=== PATIENT | female | born 1945 | race Caucasian/White ===

== ENCOUNTER 2020-06-19 10:13 | Day surgery (SDC) | payer MEDICARE, BC ==
[2020-06-11 12:13] LABS: BASOPHILS % (AUTO) 0.6 % (0-1); EOSINOPHILS % (AUTO) 0.9 % (0-6); LYMPHOCYTES # (AUTO) 1.3 X10'3 (1.1-4.8); LYMPHOCYTES % (AUTO) 25.7 % (21-51); MEAN CORPUSCULAR HEMOGLOBIN 32.7 PG (27.0-31.0); MEAN CORPUSCULAR HGB CONC 33.4 g/dL (33.0-36.5); MEAN CORPUSCULAR VOLUME 97.7 FL (78-98); MEAN PLATELET VOLUME 8.6 FL (7.4-10.4); MONOCYTES # (AUTO) 0.5 X10'3 (0-0.9); MONOCYTES % (AUTO) 9.9 % (2-12); NEUTROPHILS # (AUTO) 3.2 X10'3 (1.8-7.7); NEUTROPHILS % (AUTO) 62.9 % (42-75); PRE OP HEMATOCRIT 43.1 % (35.0-45.0); PRE OP HEMOGLOBIN 14.4 g/dL (12.0-16.0); PRE OP PLATELET COUNT 166 X10'3 (140-440); RED BLOOD COUNT 4.41 X10'6 (4.20-5.60); RED CELL DISTRIBUTION WIDTH 13.8 % (11.5-14.5)
[2020-06-11 12:30] LABS: ALBUMIN 4.2 G/DL (3.4-5.0); ALBUMIN/GLOBULIN RATIO 1.1 (1.1-1.5); ALKALINE PHOSPHATASE 58 IU/L (46-116); BLOOD UREA NITROGEN 16 MG/DL (7-18); BUN/CREATININE RATIO 20.5 (6.6-38.0); CALCIUM 8.3 MG/DL (8.5-10.1); CHLORIDE 104 MMOL/L (99-107); CREATININE 0.78 MG/DL (0.40-0.90); PRE OP ALT 18 U/L (30-65); PRE OP ANION GAP 6 (8-16); PRE OP AST 11 U/L (10-37); PRE OP BILIRUB, TOTAL 0.8 MG/DL (0.0-1.0); PRE OP GLUCOSE 103 MG/DL (70-104); PRE OP POTASSIUM 4.3 MMOL/L (3.4-5.1); PRE OP SODIUM 140 MMOL/L (135-145); TOTAL PROTEIN 7.9 G/DL (6.4-8.2); eGFR 72 ML/MIN
[2020-06-19] VITALS (9 sets, daily range): BP systolic 120–205; BP diastolic 79–110
[~2020-06-19] VITALS: Ht 152.4 cm; Wt 91.9 kg
[~2020-06-19 10:13] MED LIST: ACET-2319 PO; ASPI81TA52 PO; BLAC200C4 PO; CYAN1TAB17 PO; ESTR0.5T28 PO; UMEC1DIS INH; ceFAZolin 2gm in dextrose, iso 50 ML IV ONE; famotidine 20mg tablet PO ONE; ringers solution, lacted 1,000 ML IV SCH; vancomycin 1,500 MG in NS 300ml IV soln IV ONE
[2020-06-19] MEDS ORDERED: metoprolol tartrate 50mg tablet PO ONE (11:15)
[2020-06-19] MEDS ORDERED: BUPIVAcaine/PF 2.5 mg/ml (0.25%) 30ml vial ONE (11:41)
[2020-06-19] MEDS ORDERED: sevoflurane 250ml liquid IH ONE (12:22)
[2020-06-19] MEDS ORDERED: fentaNYL/PF 50MCG/1 ML 2ML syringe ONE (12:29)
[2020-06-19] MEDS ORDERED: midazolam 2 mg/2 ml injection ONE (12:30)
[2020-06-19] MEDS ORDERED: LIDOcaine 1%/PF 5ML 10 MG/ML VIAL ONE ×2 (12:42)
[2020-06-19] MEDS ORDERED: BUPIVAcaine/PF 7.5mg/ml (0.75%) 10ml vial ONE (12:42)
[2020-06-19] MEDS ORDERED: dexamethasone sod phosphate 4mg/ml inj. ONE (12:46)
[2020-06-19] MEDS ORDERED: propofol inj 20 ML IV ONE (12:46)
[2020-06-19] MEDS ORDERED: ondansetron/PF 4mg/2ml inj ONE (12:46)
[2020-06-19] MEDS ORDERED: ringers solution, lacted 1,000 ML IV SCH (13:00)
[2020-06-19] MEDS ORDERED: ondansetron/PF 4mg/2ml inj IV PRN (13:00)
[2020-06-19] MEDS ORDERED: morphine 2 MG/ML inj. syringe IV PRN (13:00)
[2020-06-19] MEDS ORDERED: meperidine/PF 25mg/ml syringe IV PRN ×3 (13:00)
[2020-06-19] MEDS ORDERED: morphine 4 MG/ML inj SYRINge IV PRN (13:00)
[2020-06-19] MEDS ORDERED: proCHLORperazine 10 MG/2 ml inj IV PRN (13:00)
--- NOTE | 2020-06-19 14:15 | NUR ---
Received from OR via BED, accompanied by Anesthesiologist DR RICHARD and report given by Anesthesiolgist. PATIENT A&OX4, DENIES PAIN, V/S WNL, NEUROVASCULAR CHECKS INTACT, 20G PIV LUE, SCD ON, DRESSING TO RIGHT FOOT WITH WALKING SHOE CDI ELEVATED WITH ICEBAG APPLIED.
--- NOTE | 2020-06-19 15:15 | NUR ---
PATIENT A&OX4, DENIES PAIN, V/S WNL, NEUROVASCULAR CHECKS INTACT, 20G PIV LUE D/C, SCD OFF, DRESSING TO RIGHT FOOT WITH WALKING SHOE CDI ELEVATED WITH ICEBAG APPLIED. I HAVE REVIEWED D/C INSTRUCTIONS WITH PATIENT AND FAMILY AND THEY HAVE VERBALIZED UNDERSTANDING. PATIENT D/C HOME WITH ALL BELONGINGS AND FAMILY GAVE TRANSPORT HOME.
== END 2020-06-19 15:15 | disposition home or self-care (01) ==
LOC: PAS 10:13
PROVIDERS: ATTEND Orthopaedic Surgery
DX: M20.42 Other hammer toe(s) (acquired), left foot (principal); I08.3 Combined rheumatic disorders of mitral, aortic and tricuspid valves; G89.18 Other acute postprocedural pain; J44.9 Chronic obstructive pulmonary disease, unspecified; M19.90 Unspecified osteoarthritis, unspecified site; Z90.710 Acquired absence of both cervix and uterus; Z87.891 Personal history of nicotine dependence; Z88.8 Allergy status to other drugs, medicaments and biological substances; Z79.899 Other long term (current) drug therapy
CPT/HCPCS: 28270; 28285; 36415; 64450; 71046; 80053; 82948; 85025; 87635; 93005; 93306; A6222; C1713; J1100; J2250; J2405; J2704; J3010; J3370; J3490; J7040; L3260; A4215; A4618; A6449; A7000; J7120

== ENCOUNTER 2022-06-26 17:55 | Inpatient (IN) | payer MEDICARE, BC ==
[~2022-06-26] VITALS: Ht 167.6 cm; Wt 86.9 kg
[~2022-06-26 17:55] MED LIST changes: -ceFAZolin 2gm in dextrose, iso 50 ML IV ONE; -famotidine 20mg tablet PO ONE; -ringers solution, lacted 1,000 ML IV SCH; -vancomycin 1,500 MG in NS 300ml IV soln IV ONE
[2022-06-26 18:14] LABS: BASOPHILS % (AUTO) 0.6 % (0-1); EOSINOPHILS # (AUTO) 0.1 X10'3 (0-0.9); HEMATOCRIT 40.6 % (35.0-45.0); HEMOGLOBIN 13.4 g/dl (12.0-16.0); LYMPHOCYTES % (AUTO) 18.5 % (21-51); MEAN CORPUSCULAR HEMOGLOBIN 32.6 PG (27.0-31.0); MEAN CORPUSCULAR HGB CONC 32.9 g/dL (33.0-36.5); MEAN CORPUSCULAR VOLUME 99.1 FL (78-98); MEAN PLATELET VOLUME 8.2 FL (7.4-10.4); MONOCYTES # (AUTO) 0.4 X10'3 (0-0.9); MONOCYTES % (AUTO) 7.9 % (2-12); PLATELET COUNT 163 X10'3 (140-440); RED BLOOD COUNT 4.09 X10'6 (4.20-5.60); RED CELL DISTRIBUTION WIDTH 15.3 % (11.5-14.5); WHITE BLOOD COUNT 5.5 X10'3 (4.5-11.0)
[2022-06-26 18:29] LABS: ALANINE AMINOTRANSFERASE 39 U/L (12-78); ALBUMIN 3.3 G/DL (3.4-5.0); ALKALINE PHOSPHATASE 291 IU/L (46-116); ANION GAP 11 (8-16); ASPARTATE AMINO TRANSFERASE 31 U/L (10-37); BILIRUBIN,TOTAL 0.7 MG/DL (0.1-1.0); BLOOD UREA NITROGEN 67 MG/DL (7-18); BUN/CREATININE RATIO 39.6 (6.6-38.0); CALCIUM 8.8 MG/DL (8.5-10.1); CHLORIDE 103 MMOL/L (99-107); CREATININE 1.69 MG/DL (0.40-0.90); GLUCOSE 119 MG/DL (70-104); POTASSIUM 5.4 MMOL/L (3.5-5.1); SODIUM 140 MMOL/L (135-145); TOTAL CARBON DIOXIDE 25.6 MMOL/L (24-32); TOTAL PROTEIN 6.5 G/DL (6.4-8.2); eGFR 30 ML/MIN
--- NOTE | 2022-06-26 18:39 | NUR ---
Provider notified of AFIB rvr rate 145 and documented BP now. Provider advised cardizem at 10mg/hr starting rate.
[2022-06-26] MEDS ORDERED: diltiazem-D5W 125mg/125ml 125 ML IV SCH (18:40)
[2022-06-26] MEDS: diltiazem-NS 100mg/100ml 100 ML IV SCH ×2 (18:54→21:24)
--- NOTE | 2022-06-26 20:19 | NUR ---
Provider notified of uncontrolled HR, remains in 130-140s. Patient systolic BP low 100s, provider aware. Advised RN amiodarone protocol will be ordered. Continue cardizem until amiodarone is started. Patient also continues with difficulty obtaining pulse ox, left ear producing most useful continuous reading, spo2 93 percent on 4L via NC.
[2022-06-26] MEDS ORDERED: amiodarone/D5 360MG/200ML BAG 200 ML IV ONE (20:30)
[2022-06-26] MEDS ORDERED: normal saline 1000ML IV soln IVB ONE (20:35)
[2022-06-26] MEDS ORDERED: digoxin 250mcg/ml 2ml ampule IV ONE (20:35)
[2022-06-26] MEDS ORDERED: diltiazem 5mg/ml 5ml inj. IV ONE (20:35)
--- NOTE | 2022-06-26 20:55 | NUR ---
Provider advised RN to NOT GIVE ordered IV Cardizem.
[2022-06-26] MEDS ORDERED: temazepam 15mg capsule PO PRN (21:00)
--- NOTE | 2022-06-26 22:13 | NUR ---
At request of Dr. Trotter, Dr. Frank Stack called to discuss ongoing uncontrolled AFIB RVR rate 130/140s, BP 92/65. Frank Stack recommends admin 5mg IVP metoprolol. Telephone order received.
[2022-06-26] MEDS ORDERED: metoprolol tartrate 1mg/ml inj IV ONE (22:15)
[2022-06-26] MEDS ORDERED: normal saline 500ml IV soln 1,000 ML IV ONE (22:30)
[2022-06-26] MEDS ORDERED: ipratropium/albuterol 3ml nebule NEB PRN (23:30)
[2022-06-26] MEDS ORDERED: mag hydrox/Alum hydrox/simeth 30ml oral suspension PO PRN (23:30)
[2022-06-26] MEDS ORDERED: HYDROcodone/acetaminophen 5mg/325mg tablet PO PRN (23:30)
[2022-06-26] MEDS ORDERED: ondansetron 4mg rapidly disintigrating tab PO PRN (23:30)
[2022-06-26] MEDS ORDERED: morphine 2 MG/ML inj. syringe IV PRN (23:30)
[2022-06-26] MEDS ORDERED: acetaminophen 650mg rectal suppository RC PRN (23:30)
[2022-06-26] MEDS ORDERED: acetaminophen 325mg tablet PO PRN ×2 (23:30)
[2022-06-26] MEDS ORDERED: diphenhydrAMINE 50 mg/ml inj IV PRN (23:30)
[2022-06-26] MEDS ORDERED: magnesium hydroxide 30ml (MOM) UD suspension PO PRN (23:30)
[2022-06-26] MEDS ORDERED: bisacodyl 10mg suppository rectal RC PRN (23:30)
[2022-06-26] MEDS ORDERED: diphenhydrAMINE 25mg capsule PO PRN (23:30)
[2022-06-26] MEDS: normal saline 1000ml 1,000 ML IV SCH (23:30)
[2022-06-26] MEDS ORDERED: ondansetron/PF 4mg/2ml inj IV PRN (23:30)
[2022-06-27] VITALS (39 sets, daily range): BP systolic 48–129; BP diastolic 30–103
[2022-06-27] MEDS ORDERED: insulin regular, human 10 units/0.1 ml syringe IV ONE (00:10)
[2022-06-27] MEDS ORDERED: sodium polystyrene sulfonate 15gm/60ml oral suspension PO ONE (00:10)
[2022-06-27] MEDS ORDERED: CALCIUM GLUC 1gm/50ml NACL,iso 50 ML IV PRN (00:10)
[2022-06-27] MEDS ORDERED: dextrose 50%-water 50ml dispensing syringe IV ONE (00:10)
[2022-06-27] MEDS: furosemide inj 100 MG in normal saline 100ml IV soln 90 ML IV SCH ×4 (00:15→21:00)
[2022-06-27] MEDS ORDERED: sodium bicarbonate (8.4%) inj. 1 MEQ/ML ML IV ONE (00:15)
[2022-06-27 00:24] LABS: APTT 29 SECONDS (22-32); D-DIMER 1.91 MG/L FEU (0-0.50)
--- NOTE | 2022-06-27 00:30 | NUR ---
Patient apprehensive to start HyperK medications. States she was seen by cardiology they were not concerned about. Dr. Smith notified, will recheck AM potassium level, will hold these medications for now.
[2022-06-27 00:33] LABS: MAGNESIUM 2.2 MG/DL (1.5-2.4); PHOSPHORUS 5.1 MG/DL (2.3-4.5)
[2022-06-27 00:36] LABS: CLARITY,URINE CLEAR (Clear); COLOR,URINE YELLOW (Yellow); GLUCOSE, URINE NEGATIVE (Neg); KETONES,URINE NEGATIVE (Neg); LEUKOCYTE ESTERASE ,URINE NEGATIVE (Neg); NITRITES, URINE NEGATIVE (Neg); OCCULT BLOOD,URINE MODERATE (Neg); PROTEIN,URINE NEGATIVE (Neg); UROBILINOGEN,URINE 0.2 E.U/dL (0.2-1.0)
[2022-06-27 00:38] LABS: UA COLLECTION TYPE STRAIGHT CATH
[2022-06-27 00:43] LABS: BACTERIA,URINE NONE SEEN /HPF (Neg); HYALINE CASTS 0-3 /LPF (NEGATIVE); MUCUS STRANDS FEW /LPF (Neg); SQUAMOUS EPITHELIAL CELL,UR NONE SEEN /LPF (FEW); WBC,URINE 0-4 /HPF (0-4)
[2022-06-27 01:00] LABS: HEMOGLOBIN A1C 6.1 % (4.5-6.2)
[2022-06-27] MEDS ORDERED: amiodarone/D5 360MG/200ML BAG 200 ML IV SCH (02:35)
--- NOTE | 2022-06-27 02:35 | NUR ---
Patient noted end of amiodarone drip 33mls/hr phase, provider called for ongoing elevated/variable AFIB RVR, rate remains 120-140s, BP 98/65. Discussed conversation previous had at bedside with Cardiology Seda, will enter telephone order for 16.5mls/hr at this time and continue amiodarone drip.
--- NOTE | 2022-06-27 02:52 | NUR ---
Report called to Jett on PCU, pending clearance to transport to receiving unit.
--- NOTE | 2022-06-27 03:06 | NUR ---
Dr. Stack cardiology called at this time at request of PCU. Discussed patient current borderline pressures and ongoing elevated HR in 120s-140s. Dr. Stack advised patient should continue amiodarone at the previous 33mls/hr not the new 16.5. Also advised caller to administer PO 25mg metoprolol tartrate. Low BP are expected finding given patient known history low EF. No other changes per Dr. Stack, is agreeable for patient to go to PCU.
[2022-06-27] MEDS ORDERED: metoprolol tartrate 25mg tablet PO ONE (03:15)
[2022-06-27] MEDS: amiodarone/D5 360MG/200ML BAG 200 ML IV SCH ×5 (03:32→16:37)
[2022-06-27 06:57] LABS: BASOPHILS % (AUTO) 0.3 % (0-1); HEMATOCRIT 38.9 % (35.0-45.0); HEMOGLOBIN 12.6 g/dl (12.0-16.0); LYMPHOCYTES # (AUTO) 0.8 X10'3 (1.1-4.8); LYMPHOCYTES % (AUTO) 16.2 % (21-51); MEAN CORPUSCULAR HEMOGLOBIN 32.1 PG (27.0-31.0); MEAN CORPUSCULAR HGB CONC 32.5 g/dL (33.0-36.5); MEAN PLATELET VOLUME 8.9 FL (7.4-10.4); MONOCYTES # (AUTO) 0.4 X10'3 (0-0.9); NEUTROPHILS # (AUTO) 3.5 X10'3 (1.8-7.7); NEUTROPHILS % (AUTO) 73.5 % (42-75); PLATELET COUNT 147 X10'3 (140-440); RED BLOOD COUNT 3.93 X10'6 (4.20-5.60); RED CELL DISTRIBUTION WIDTH 15.3 % (11.5-14.5); WHITE BLOOD COUNT 4.7 X10'3 (4.5-11.0)
[2022-06-27 06:59] LABS: ALANINE AMINOTRANSFERASE 33 U/L (12-78); ALBUMIN 3.2 G/DL (3.4-5.0); ALKALINE PHOSPHATASE 260 IU/L (46-116); ANION GAP 10 (8-16); ASPARTATE AMINO TRANSFERASE 25 U/L (10-37); BILIRUBIN,TOTAL 0.6 MG/DL (0.1-1.0); BLOOD UREA NITROGEN 64 MG/DL (7-18); BUN/CREATININE RATIO 37.9 (6.6-38.0); CALCIUM 8.8 MG/DL (8.5-10.1); CHLORIDE 103 MMOL/L (99-107); CHOL/HDL RATIO 2.8 (0.00-4.99); CHOLESTEROL 111 MG/DL (0-200); CREATININE 1.69 MG/DL (0.40-0.90); GLUCOSE 109 MG/DL (70-104); HDL CHOLESTEROL 40 MG/DL (35-60); LDL CHOLESTEROL 57 MG/DL (50-100); POTASSIUM 5.1 MMOL/L (3.5-5.1); SODIUM 141 MMOL/L (135-145); TOTAL PROTEIN 6.4 G/DL (6.4-8.2); TRIGLYCERIDES 87 MG/DL (20-135); eGFR 30 ML/MIN
--- NOTE | 2022-06-27 07:29 | NUR ---
Patient in room PCU 3027. I have received report from KARIN DE, and had the opportunity to ask questions and assume patient care.
[2022-06-27] MEDS: docusate sod 100mg capsule PO SCH ×2 (08:15→21:25)
--- NOTE | 2022-06-27 10:23 | NUR ---
Calorie count consult: Pt admit for A.fib with RVR, acute renal failure with hyperkalemia, acute respiratory failure secondary to hypoxia, and CHF exacerbation. Pt currently on a clear liquid diet. Calorie count not indicated at this time. Recommend advancing to regular versus renal diet as medically indicated as lipid panel is WNL and pt with elevated serum Phos, K now WNL. Will continue to follow. Addendum: 06/27/22 at [address] Amended: Links added.
--- NOTE | 2022-06-27 13:32 | NUR ---
RECEIVED IN REPORT THAT IT PT'S K IS WNL IN THE MORNING TO DISCONTINUE ER MEDS.
--- NOTE | 2022-06-27 16:40 | NUR ---
PAGE SENT [id number], EMELY JONES, PT C/O EARNEST LINARES. HOW CAN I HELP HER? THANK YOU, AMBREEN [phone]
--- NOTE | 2022-06-27 19:01 | NUR ---
Problems reprioritized. Patient report given, questions answered & plan of care reviewed with KARIN KOWALSKI.
[2022-06-28] VITALS (13 sets, daily range): BP systolic 84–109; BP diastolic 48–86
[2022-06-28] MEDS: amiodarone/D5 360MG/200ML BAG 200 ML IV SCH ×2 (03:23→09:06)
[2022-06-28] MEDS: furosemide inj 100 MG in normal saline 100ml IV soln 90 ML IV SCH ×3 (05:05→15:48)
[2022-06-28 05:42] LABS: EOSINOPHILS # (AUTO) 0.1 X10'3 (0-0.9); HEMOGLOBIN 12.6 g/dl (12.0-16.0); MEAN CORPUSCULAR HEMOGLOBIN 31.8 PG (27.0-31.0); MEAN CORPUSCULAR HGB CONC 32.6 g/dL (33.0-36.5); MONOCYTES # (AUTO) 0.3 X10'3 (0-0.9); NEUTROPHILS # (AUTO) 2.9 X10'3 (1.8-7.7); RED BLOOD COUNT 3.96 X10'6 (4.20-5.60); RED CELL DISTRIBUTION WIDTH 14.9 % (11.5-14.5)
[2022-06-28 05:46] LABS: BASOPHILS % (AUTO) 0.5 % (0-1); EOSINOPHILS % (AUTO) 1.4 % (0-6); HEMATOCRIT 38.6 % (35.0-45.0); LYMPHOCYTES # (AUTO) 0.6 X10'3 (1.1-4.8); LYMPHOCYTES % (AUTO) 14.7 % (21-51); MEAN CORPUSCULAR VOLUME 97.7 FL (78-98); MEAN PLATELET VOLUME 8.2 FL (7.4-10.4); MONOCYTES % (AUTO) 9.1 % (2-12); NEUTROPHILS % (AUTO) 74.3 % (42-75); PLATELET COUNT 149 X10'3 (140-440); WHITE BLOOD COUNT 3.8 X10'3 (4.5-11.0)
[2022-06-28 06:11] LABS: ALANINE AMINOTRANSFERASE 30 U/L (12-78); ALBUMIN 3.2 G/DL (3.4-5.0); ALKALINE PHOSPHATASE 227 IU/L (46-116); ANION GAP 8 (8-16); ASPARTATE AMINO TRANSFERASE 26 U/L (10-37); BILIRUBIN,TOTAL 0.6 MG/DL (0.1-1.0); BLOOD UREA NITROGEN 55 MG/DL (7-18); BUN/CREATININE RATIO 33.5 (6.6-38.0); CALCIUM 8.6 MG/DL (8.5-10.1); CHLORIDE 101 MMOL/L (99-107); CREATININE 1.64 MG/DL (0.40-0.90); GLUCOSE 117 MG/DL (70-104); POTASSIUM 3.8 MMOL/L (3.5-5.1); SODIUM 139 MMOL/L (135-145); TOTAL CARBON DIOXIDE 30.1 MMOL/L (24-32); TOTAL PROTEIN 6.4 G/DL (6.4-8.2); eGFR 31 ML/MIN
--- NOTE | 2022-06-28 07:13 | NUR ---
Patient in room PCU 3027. I have received report from KARIN KOWALSKI, and had the opportunity to ask questions and assume patient care.
[2022-06-28] MEDS: docusate sod 100mg capsule PO SCH ×2 (09:05→21:59)
[2022-06-28] MEDS: amiodarone inj. 450 MG in dextrose 5%-water 241 ML IV SCH ×3 (15:48→23:45)
--- NOTE | 2022-06-28 18:17 | NUR ---
Problems reprioritized. Patient report given, questions answered & plan of care reviewed with KARIN KOWALSKI.
[2022-06-28] MEDS: normal saline 1000ml 1,000 ML IV SCH (23:30)
[2022-06-29] VITALS (11 sets, daily range): BP systolic 91–112; BP diastolic 42–87
[2022-06-29] MEDS: furosemide inj 100 MG in normal saline 100ml IV soln 90 ML IV SCH ×3 (01:36→22:16)
[2022-06-29 06:17] LABS: HEMOGLOBIN 13.6 g/dl (12.0-16.0); MEAN CORPUSCULAR HEMOGLOBIN 32.3 PG (27.0-31.0); MEAN PLATELET VOLUME 8.2 FL (7.4-10.4); PLATELET COUNT 155 X10'3 (140-440); RED BLOOD COUNT 4.22 X10'6 (4.20-5.60); WHITE BLOOD COUNT 4.3 X10'3 (4.5-11.0)
[2022-06-29 06:18] LABS: BASOPHILS % (AUTO) 0.6 % (0-1); EOSINOPHILS # (AUTO) 0.1 X10'3 (0-0.9); EOSINOPHILS % (AUTO) 1.2 % (0-6); HEMATOCRIT 40.9 % (35.0-45.0); LYMPHOCYTES # (AUTO) 0.6 X10'3 (1.1-4.8); LYMPHOCYTES % (AUTO) 14.8 % (21-51); MEAN CORPUSCULAR HGB CONC 33.3 g/dL (33.0-36.5); MONOCYTES # (AUTO) 0.4 X10'3 (0-0.9); NEUTROPHILS # (AUTO) 3.2 X10'3 (1.8-7.7); NEUTROPHILS % (AUTO) 74.4 % (42-75); RED CELL DISTRIBUTION WIDTH 14.8 % (11.5-14.5)
[2022-06-29 06:57] LABS: ALANINE AMINOTRANSFERASE 29 U/L (12-78); ALBUMIN 3.3 G/DL (3.4-5.0); ALBUMIN/GLOBULIN RATIO 0.9 (1.1-1.5); ALKALINE PHOSPHATASE 214 IU/L (46-116); ANION GAP 11 (8-16); ASPARTATE AMINO TRANSFERASE 30 U/L (10-37); BILIRUBIN,TOTAL 0.8 MG/DL (0.1-1.0); BLOOD UREA NITROGEN 44 MG/DL (7-18); BUN/CREATININE RATIO 30.1 (6.6-38.0); CHLORIDE 97 MMOL/L (99-107); CREATININE 1.46 MG/DL (0.40-0.90); GLUCOSE 118 MG/DL (70-104); POTASSIUM 3.2 MMOL/L (3.5-5.1); SODIUM 139 MMOL/L (135-145); TOTAL CARBON DIOXIDE 30.6 MMOL/L (24-32); TOTAL PROTEIN 6.9 G/DL (6.4-8.2); eGFR 35 ML/MIN
--- NOTE | 2022-06-29 08:16 | NUR ---
Paged PAGER ID: [phone] MESSAGE: [phone]. Elvin. Justine 3.2, need k/mg protocol pls? Thanks, Olesya [phone]
[2022-06-29] MEDS: amiodarone inj. 450 MG in dextrose 5%-water 241 ML IV SCH ×3 (08:22→21:03)
[2022-06-29] MEDS: docusate sod 100mg capsule PO SCH ×2 (08:22→19:55)
[2022-06-29] MEDS ORDERED: FURO20TA4 PO (08:35)
[2022-06-29] MEDS ORDERED: POTA8TAB69 PO (08:35)
[2022-06-29] MEDS ORDERED: APIX5TAB3 PO (08:35)
[2022-06-29] MEDS ORDERED: LISI20TA28 PO (08:35)
[2022-06-29] MEDS ORDERED: BETA15CR4 (08:35)
[2022-06-29] MEDS ORDERED: magnesium Cl slow-release 64mg tablet PO PRN (08:40)
[2022-06-29] MEDS ORDERED: potassium Cl 40MEQ/1/2NS 520ml 520 ML IV PRN (08:40)
[2022-06-29] MEDS ORDERED: magnesium 4gm in 100ml NS 100 ML IV PRN (08:40)
[2022-06-29] MEDS: potassium Cl 20 mEq SR tablet PO PRN ×3 (09:40→19:56)
[2022-06-29] MEDS: cephalexin 250mg capsule PO SCH ×3 (09:40→19:55)
--- NOTE | 2022-06-29 11:00 | NUR ---
Pts brought in home meds. Gave pt her estradiol which she was swallowing as I entered the room. Educated on home meds. She verbalized understanding and will have take them back home.
[2022-06-29] MEDS ORDERED: METO-384 PO (11:24)
[2022-06-29] MEDS ORDERED: METO5TAB7 PO (11:24)
--- NOTE | 2022-06-29 12:11 | NUR ---
Paged PAGER ID: [phone] MESSAGE: [phone]. Elvin. Pls rev med rec AND see Dr benavidez progress note on metoprolol dose. HR 135-145's. Pls advise. Thanks, Olesya [phone]
[2022-06-29] MEDS ORDERED: CLOB15OI3 TOP (14:59)
[2022-06-29] MEDS: metoprolol tartrate 25mg tablet PO SCH ×2 (16:28→19:57)
--- NOTE | 2022-06-29 18:47 | NUR ---
Student documentation: I have reviewed and agree with all interventions, assessments performed and documented by Quyen.
--- NOTE | 2022-06-29 18:47 | NUR ---
Student Medication Administration: For this medication-pass time frame, all medication were reviewed, dispensed, administered and documented per hospital policy by .
[2022-06-29] MEDS: K and/or MAG REPLACEMENT MC SCH (19:56)
[2022-06-30] VITALS (13 sets, daily range): BP systolic 88–117; BP diastolic 58–89
[2022-06-30] MEDS: amiodarone inj. 450 MG in dextrose 5%-water 241 ML IV SCH ×4 (00:15→19:33)
[2022-06-30 06:27] LABS: BASOPHILS % (AUTO) 0.5 % (0-1); EOSINOPHILS # (AUTO) 0.1 X10'3 (0-0.9); EOSINOPHILS % (AUTO) 1.7 % (0-6); HEMATOCRIT 41.8 % (35.0-45.0); HEMOGLOBIN 13.9 g/dl (12.0-16.0); LYMPHOCYTES # (AUTO) 0.6 X10'3 (1.1-4.8); LYMPHOCYTES % (AUTO) 16.4 % (21-51); MEAN CORPUSCULAR HGB CONC 33.3 g/dL (33.0-36.5); MEAN CORPUSCULAR VOLUME 96.2 FL (78-98); MEAN PLATELET VOLUME 8.3 FL (7.4-10.4); MONOCYTES # (AUTO) 0.4 X10'3 (0-0.9); MONOCYTES % (AUTO) 9.7 % (2-12); NEUTROPHILS # (AUTO) 2.8 X10'3 (1.8-7.7); NEUTROPHILS % (AUTO) 71.7 % (42-75); PLATELET COUNT 154 X10'3 (140-440); RED BLOOD COUNT 4.35 X10'6 (4.20-5.60); RED CELL DISTRIBUTION WIDTH 14.4 % (11.5-14.5); WHITE BLOOD COUNT 3.9 X10'3 (4.5-11.0)
--- NOTE | 2022-06-30 06:43 | NUR ---
Patient in room PCU 3027. I have received report from KARIN KOWALSKI, and had the opportunity to ask questions and assume patient care.
[2022-06-30 06:47] LABS: ALANINE AMINOTRANSFERASE 24 U/L (12-78); ALBUMIN 3.2 G/DL (3.4-5.0); ALBUMIN/GLOBULIN RATIO 0.9 (1.1-1.5); ALKALINE PHOSPHATASE 191 IU/L (46-116); ANION GAP 10 (8-16); ASPARTATE AMINO TRANSFERASE 24 U/L (10-37); BILIRUBIN,TOTAL 1.1 MG/DL (0.1-1.0); BLOOD UREA NITROGEN 35 MG/DL (7-18); BUN/CREATININE RATIO 25.9 (6.6-38.0); CALCIUM 9.2 MG/DL (8.5-10.1); CHLORIDE 94 MMOL/L (99-107); CREATININE 1.35 MG/DL (0.40-0.90); GLUCOSE 107 MG/DL (70-104); SODIUM 140 MMOL/L (135-145); TOTAL PROTEIN 6.8 G/DL (6.4-8.2); eGFR 38 ML/MIN
[2022-06-30 06:51] LABS: POTASSIUM 2.8 MMOL/L (3.5-5.1)
[2022-06-30] MEDS: K and/or MAG REPLACEMENT MC SCH ×2 (07:22→21:17)
[2022-06-30] MEDS: furosemide inj 100 MG in normal saline 100ml IV soln 90 ML IV SCH ×3 (07:47→17:11)
[2022-06-30] MEDS: docusate sod 100mg capsule PO SCH ×2 (07:48→21:10)
[2022-06-30] MEDS: metoprolol tartrate 25mg tablet PO SCH ×2 (07:48→20:00)
[2022-06-30] MEDS: cephalexin 250mg capsule PO SCH ×3 (07:48→21:08)
[2022-06-30] MEDS: potassium Cl 20 mEq SR tablet PO PRN ×4 (07:49→21:20)
[2022-06-30 11:40] LABS: ALBUMIN 3.2 G/DL (3.4-5.0); ANION GAP 6 (8-16); BLOOD UREA NITROGEN 35 MG/DL (7-18); BUN/CREATININE RATIO 26.7 (6.6-38.0); CALCIUM 9.3 MG/DL (8.5-10.1); CHLORIDE 94 MMOL/L (99-107); CREATININE 1.31 MG/DL (0.40-0.90); GLUCOSE 119 MG/DL (70-104); PHOSPHORUS 4.4 MG/DL (2.3-4.5); POTASSIUM 3.1 MMOL/L (3.5-5.1); SODIUM 137 MMOL/L (135-145); TOTAL CARBON DIOXIDE 37.5 MMOL/L (24-32); eGFR 40 ML/MIN
--- NOTE | 2022-06-30 12:41 | NUR ---
PAGE SENT PAGER ID: [phone] MESSAGE: [id number], EMELY JONES, RIGHT EYE IS RED AND PT REPORTS IRRITATION. PT REQUESTING EYE DROPS. THANK YOU, AMBREEN [id number]
[2022-06-30] MEDS: moxifloxacin 0.5% ophthalmic drops 3ml RIGHTEYE SCH ×2 (12:53→21:08)
--- NOTE | 2022-06-30 13:18 | NUR ---
PRESSURE ULCER EDUCATION: DEFINITION: A pressure ulcer is an area of skin that breaks down when you stay in one position too long. The constant pressure against the skin reduces the blood flow to that area and the affected tissue dies. CAUSES: "Being bedridden or in a wheelchair "Fragile skin "Having a chronic condition, such as diabetes or vascular disease "Inability to move certain parts of your body without assistance "Older age "Incontinence of urine or stool SYMPTOMS: "A reddened area that DOES NOT turn white when pressed on - this can be the beginning of a pressure ulcer "A blister, deep sore or a crater - these can be advanced pressure ulcers FIRST AID: "Relieve the pressure on this area "Keep the area clean and dry "Call your primary doctor if you see any of the above symptoms "DO NOT massage the area "DO NOT use a donut shaped or ring shaped pillow- these actually interfere with the blood flow and cause complications PREVENTION: "Check for pressure ulcers everyday "Change position at least every two hours to relieve pressure "Use items that help relieve pressure- pillows, sheepskin, foam padding, and powders. "Keep skin clean and dry "Eat healthy well balanced meals "Exercise daily IF YOU SEE ANY OF THESE SYMPTOMS WHILE IN THE HOSPITAL - TELL YOUR NURSE IMMEDIATELY. IF YOU SEE ANY OF THESE SYMPTOMS WHILE AT HOME OR HAVE ANY QUESTIONS OR CONCERNS ABOUT PRESSURE ULCERS - CALL YOUR PRIMARY DOCTOR IMMEDIATELY. Addendum: 06/30/22 at 1319 by Cara Mckeon LVN Amended: Links added.
[2022-06-30 15:26] LABS: HBSAG SCREEN Negative (Negative); HEP B CORE AB, TOT Negative (Negative)
--- NOTE | 2022-06-30 18:41 | NUR ---
Problems reprioritized. Patient report given, questions answered & plan of care reviewed with KARIN KOWALSKI.
[2022-06-30] MEDS: mineral oil/petrolatum, white cream 60gm jar TP SCH (20:00)
[2022-06-30] MEDS: apixaban 5mg tablet PO SCH (21:08)
[2022-06-30] MEDS: nystatin 15 GM powder TP SCH (21:08)
[2022-07-01] VITALS (8 sets, daily range): BP systolic 82–112; BP diastolic 61–74
[2022-07-01] MEDS: furosemide inj 100 MG in normal saline 100ml IV soln 90 ML IV SCH ×3 (02:30→07:50)
[2022-07-01] MEDS: amiodarone inj. 450 MG in dextrose 5%-water 241 ML IV SCH ×4 (03:03→07:49)
[2022-07-01 06:19] LABS: BASOPHILS % (AUTO) 1.2 % (0-1); EOSINOPHILS # (AUTO) 0.1 X10'3 (0-0.9); EOSINOPHILS % (AUTO) 2.8 % (0-6); HEMATOCRIT 46.3 % (35.0-45.0); HEMOGLOBIN 15.1 g/dl (12.0-16.0); LYMPHOCYTES # (AUTO) 0.8 X10'3 (1.1-4.8); LYMPHOCYTES % (AUTO) 20.4 % (21-51); MEAN CORPUSCULAR HEMOGLOBIN 32.2 PG (27.0-31.0); MEAN CORPUSCULAR HGB CONC 32.6 g/dL (33.0-36.5); MEAN CORPUSCULAR VOLUME 98.9 FL (78-98); MEAN PLATELET VOLUME 7.9 FL (7.4-10.4); MONOCYTES # (AUTO) 0.4 X10'3 (0-0.9); MONOCYTES % (AUTO) 8.7 % (2-12); NEUTROPHILS # (AUTO) 2.7 X10'3 (1.8-7.7); NEUTROPHILS % (AUTO) 66.9 % (42-75); PLATELET COUNT 133 X10'3 (140-440); RED BLOOD COUNT 4.68 X10'6 (4.20-5.60); WHITE BLOOD COUNT 4.1 X10'3 (4.5-11.0)
[2022-07-01 06:37] LABS: ALANINE AMINOTRANSFERASE 27 U/L (12-78); ALBUMIN 2.8 G/DL (3.4-5.0); ALBUMIN/GLOBULIN RATIO 0.6 (1.1-1.5); ALKALINE PHOSPHATASE 177 IU/L (46-116); ANION GAP 7 (8-16); ASPARTATE AMINO TRANSFERASE 45 U/L (10-37); BILIRUBIN,TOTAL 1.4 MG/DL (0.1-1.0); BLOOD UREA NITROGEN 35 MG/DL (7-18); CALCIUM 9.3 MG/DL (8.5-10.1); CHLORIDE 93 MMOL/L (99-107); GLUCOSE 101 MG/DL (70-104); POTASSIUM 4.2 MMOL/L (3.5-5.1); SODIUM 131 MMOL/L (135-145); TOTAL CARBON DIOXIDE 31.3 MMOL/L (24-32); TOTAL PROTEIN 7.2 G/DL (6.4-8.2)
[2022-07-01 06:47] LABS: BUN/CREATININE RATIO 24.8 (6.6-38.0); CREATININE 1.41 MG/DL (0.40-0.90); eGFR 36 ML/MIN
[2022-07-01] MEDS: apixaban 5mg tablet PO SCH ×2 (07:46→19:46)
[2022-07-01] MEDS: metoprolol tartrate 25mg tablet PO SCH ×3 (07:46→21:53)
[2022-07-01] MEDS: cephalexin 250mg capsule PO SCH ×3 (07:46→19:48)
[2022-07-01] MEDS: mineral oil/petrolatum, white cream 60gm jar TP SCH ×2 (08:00→19:49)
[2022-07-01] MEDS: K and/or MAG REPLACEMENT MC SCH ×2 (08:00→19:44)
[2022-07-01] MEDS: docusate sod 100mg capsule PO SCH ×2 (08:00→19:43)
[2022-07-01] MEDS: nystatin 15 GM powder TP SCH ×2 (08:00→19:49)
[2022-07-01] MEDS: moxifloxacin 0.5% ophthalmic drops 3ml RIGHTEYE SCH ×2 (08:04→19:49)
[2022-07-01] MEDS ORDERED: metoprolol tartrate 50mg tablet PO ONE (10:30)
--- NOTE | 2022-07-01 11:11 | NUR ---
Initial: Pt admit for A.fib with RVR, acute renal failure w/ hyperkalemia, acute respiratory failure secondary to hypoxia, and CHF exacerbation per EMR. Pt PO fluctuates ~50% avg initial clears and full liquids meals advanced to heart healthy diet yesterday PO 0-25% initial meals though improved to 88% breakfast this AM. Given fluctuating intake and initial restrictive diet pt not meeting estimated needs. If most recent PO intake this AM persists pt would be meeting estimated needs though since overall PO acceptance fluctuates RD recommends Ensure High Protein BIDBD; MD notified. Of note, serum Na 131mmol/L this AM likely influenced by -28.5L fluid balance and subsequent -12.8kg this admit. First BM yesterday receiving routine colace per EMR. Will continue to follow. Rec: 1. continue heart healthy diet per MD; if PO future meals regresses consider liberalizing to regular diet 2. Ensure High Protein BIDBD; pending physician verification in EMR 3. Monitor further PO trends for ONS adjustment needs; if most recent PO trends persist no need for ONS 4. routine bowel care 5. daily scaled wts Addendum: 07/01/22 at [address] Amended: Links added.
[2022-07-01] MEDS: furosemide 40mg/4ml inj IV SCH (19:45)
[2022-07-02 02:00] VITALS: BP 92/72
[2022-07-02 06:00] VITALS: BP 100/71
--- NOTE | 2022-07-02 06:24 | NUR ---
Problems reprioritized. Patient report given, questions answered & plan of care reviewed with KARIN Martinez.
[2022-07-02] MEDS: furosemide 40mg/4ml inj IV SCH (08:00)
[2022-07-02] MEDS: docusate sod 100mg capsule PO SCH (08:00)
[2022-07-02] MEDS: K and/or MAG REPLACEMENT MC SCH (08:00)
[2022-07-02] MEDS: apixaban 5mg tablet PO SCH (08:51)
[2022-07-02] MEDS: cephalexin 250mg capsule PO SCH ×2 (08:51→12:49)
[2022-07-02] MEDS: moxifloxacin 0.5% ophthalmic drops 3ml RIGHTEYE SCH (08:52)
[2022-07-02] MEDS: metoprolol tartrate 25mg tablet PO SCH (08:57)
[2022-07-02] MEDS: nystatin 15 GM powder TP SCH (08:57)
[2022-07-02] MEDS: mineral oil/petrolatum, white cream 60gm jar TP SCH (08:58)
[2022-07-02 11:00] VITALS: BP 80/56
[2022-07-02 13:06] LABS: BASOPHILS % (AUTO) 0.9 % (0-1); EOSINOPHILS # (AUTO) 0.1 X10'3 (0-0.9); EOSINOPHILS % (AUTO) 2.2 % (0-6); HEMATOCRIT 40.1 % (35.0-45.0); HEMOGLOBIN 13.1 g/dl (12.0-16.0); LYMPHOCYTES # (AUTO) 0.9 X10'3 (1.1-4.8); MEAN CORPUSCULAR HEMOGLOBIN 31.5 PG (27.0-31.0); MEAN CORPUSCULAR HGB CONC 32.7 g/dL (33.0-36.5); MEAN CORPUSCULAR VOLUME 96.2 FL (78-98); MEAN PLATELET VOLUME 8.4 FL (7.4-10.4); MONOCYTES # (AUTO) 0.4 X10'3 (0-0.9); MONOCYTES % (AUTO) 8.1 % (2-12); NEUTROPHILS # (AUTO) 3.4 X10'3 (1.8-7.7); NEUTROPHILS % (AUTO) 69.8 % (42-75); PLATELET COUNT 152 X10'3 (140-440); RED BLOOD COUNT 4.16 X10'6 (4.20-5.60); RED CELL DISTRIBUTION WIDTH 14.4 % (11.5-14.5); WHITE BLOOD COUNT 4.9 X10'3 (4.5-11.0)
[2022-07-02 13:21] LABS: ALBUMIN 3.3 G/DL (3.4-5.0); ANION GAP 4 (8-16); BLOOD UREA NITROGEN 48 MG/DL (7-18); BUN/CREATININE RATIO 26.7 (6.6-38.0); CALCIUM 8.7 MG/DL (8.5-10.1); CHLORIDE 91 MMOL/L (99-107); GLUCOSE 83 MG/DL (70-104); POTASSIUM 3.6 MMOL/L (3.5-5.1); SODIUM 135 MMOL/L (135-145); eGFR 27 ML/MIN
[2022-07-02 13:24] LABS: TOTAL CARBON DIOXIDE 40.5 MMOL/L (24-32)
--- NOTE | 2022-07-02 13:29 | NUR ---
sent to [facility]: [id number]: Co2 is 40.5. mehdi. Michelle RN [phone]
[2022-07-02] MEDS ORDERED: CEPH250C PO (13:34)
[2022-07-02] MEDS ORDERED: metoprolol tartrate 50mg tablet PO ONE (15:10)
--- NOTE | 2022-07-02 15:30 | NUR ---
Discharge instructions discussed with patient. Addressed new medication and the continuation of current medications. Also discussed upcoming doctor appointments. All questions answered. Pt states she understands all instructions.
[2022-07-02] MEDS ORDERED: metoprolol tartrate 50mg tablet PO SCH (20:00)
== END 2022-07-02 16:10 | disposition home or self-care (01) | DRG 602 ==
LOC: ER 17:55 → ED HOLD 23:33 → PCU 3S 06-27 03:50
PROVIDERS: ADMIT Family Medicine; ATTEND Internal Medicine
DX: L03.90 Cellulitis, unspecified (principal); I50.43 Acute on chronic combined systolic (congestive) and diastolic (congestive) heart failure; J96.01 Acute respiratory failure with hypoxia; I13.0 Hypertensive heart and chronic kidney disease with heart failure and stage 1 through stage 4 chronic kidney disease, or unspecified chronic kidney disease; N17.9 Acute kidney failure, unspecified; I48.19 Other persistent atrial fibrillation; N18.9 Chronic kidney disease, unspecified; I95.9 Hypotension, unspecified; R21 Rash and other nonspecific skin eruption; E66.01 Morbid (severe) obesity due to excess calories; E78.5 Hyperlipidemia, unspecified; E87.5 Hyperkalemia; G47.33 Obstructive sleep apnea (adult) (pediatric); E87.6 Hypokalemia; D64.9 Anemia, unspecified; I27.20 Pulmonary hypertension, unspecified; I45.81 Long QT syndrome; K76.1 Chronic passive congestion of liver; Z68.30 Body mass index [BMI] 30.0-30.9, adult; Z79.01 Long term (current) use of anticoagulants; Z79.899 Other long term (current) drug therapy; Z87.891 Personal history of nicotine dependence; Z88.8 Allergy status to other drugs, medicaments and biological substances; Z79.82 Long term (current) use of aspirin
CPT/HCPCS: 36415; 71045; 80048; 80053; 80061; 80069; 81001; 83036; 83605; 83735; 83880; 84100; 84132; 84443; 84484; 85025; 85379; 85610; 85730; 86704; 86705; 86706; 87040; 87340; 93005; 94760; 96361; 96365; 96375; 97116; 97162; 99291; A4615; A6213; A6250; G0378; J0282; J1160; J1940; J3490; J7030; J7040; J7060

== ENCOUNTER 2022-07-27 12:30 | Day surgery (SDC) | payer MEDICARE, BC ==
[2022-07-27] VITALS (14 sets, daily range): BP systolic 69–132; BP diastolic 34–76
[~2022-07-27] VITALS: Ht 152.4 cm; Wt 93.7 kg
[~2022-07-27 12:30] MED LIST changes: -ACET-2319 PO; +APIX5TAB3 PO; -ASPI81TA52 PO; +CEPH250C PO; +CLOB15OI3 TOP; -CYAN1TAB17 PO; +FURO20TA4 PO; +LISI20TA28 PO; +METO-384 PO; +METO5TAB7 PO; +POTA8TAB69 PO; +naloxone 0.4 mg/ml inj ONE
[2022-07-27] MEDS ORDERED: fentaNYL/PF 50MCG/1 ML 2ML syringe IV ONE (12:55)
[2022-07-27] MEDS ORDERED: MIDAZolam 1mg/ml 10ml vial IV ONE (12:55)
[2022-07-27] MEDS ORDERED: normal saline 1000ml 1,000 ML IV SCH (12:55)
[2022-07-27] MEDS ORDERED: AMIO200T61 PO (13:06)
[2022-07-27] MEDS ORDERED: naloxone 0.4 mg/ml inj IV ONE (14:30)
== END 2022-07-27 16:26 | disposition home or self-care (01) ==
LOC: SSTAY O 12:30
PROVIDERS: ATTEND Student in an Organized Health Care Education/Training Program
DX: I48.91 Unspecified atrial fibrillation (principal); J44.9 Chronic obstructive pulmonary disease, unspecified; G47.33 Obstructive sleep apnea (adult) (pediatric); I11.0 Hypertensive heart disease with heart failure; I50.9 Heart failure, unspecified; Z79.01 Long term (current) use of anticoagulants; Z79.899 Other long term (current) drug therapy; Z88.8 Allergy status to other drugs, medicaments and biological substances
CPT/HCPCS: 92960; 93005; J2250; J2310; J3010; J7030; A4620

== ENCOUNTER 2022-11-02 10:47 | Day surgery (SDC) | payer MEDICARE, BC ==
[2022-11-02] VITALS (9 sets, daily range): BP systolic 143–174; BP diastolic 68–93
[~2022-11-02] VITALS: Ht 152.4 cm; Wt 82.3 kg
[~2022-11-02 10:47] MED LIST changes: +AMI200T PO; -CEPH250C PO; -CLOB15OI3 TOP; -naloxone 0.4 mg/ml inj ONE
[2022-11-02] MEDS ORDERED: diphenhydrAMINE 25mg capsule PO PRN (11:15)
[2022-11-02] MEDS ORDERED: normal saline 1,000 ML IV SCH (11:15)
[2022-11-02] MEDS ORDERED: LORazepam 0.5 MG tablet PO PRN (11:15)
[2022-11-02] MEDS ORDERED: METO-411 PO (11:33)
[2022-11-02] MEDS ORDERED: ALB0.5UD (11:35)
[2022-11-02] MEDS ORDERED: SPIR25TA5 PO (11:39)
[2022-11-02] MEDS ORDERED: FLUT15.87 (11:39)
[2022-11-02] MEDS ORDERED: midazolam 1 mg/ML 2ml injection ONE (12:20)
[2022-11-02] MEDS ORDERED: LIDOcaine 1% (10mg/ml) 2ml vial ONE (12:20)
[2022-11-02] MEDS ORDERED: verapamil 2.5 mg/ml inj IV ONE (12:20)
[2022-11-02] MEDS ORDERED: nitroGLYCERIN-Tridil 50MG/D5W 250 ML IV ONE (12:21)
[2022-11-02] MEDS ORDERED: fentaNYL/PF 50MCG/1 ML 2ML syringe ONE (12:21)
[2022-11-02] MEDS ORDERED: iohexol 350MG/ML 100ml bottle IV ONE (12:21)
[2022-11-02] MEDS ORDERED: heparin 1,000unit/ml 10ml vial 10 ML ONE (12:21)
[2022-11-02] MEDS ORDERED: HYDROcodone/acetaminophen 10/325mg tab PO PRN (14:30)
[2022-11-02] MEDS ORDERED: HYDROcodone/acetaminophen 5mg/325mg tablet PO PRN (14:30)
== END 2022-11-02 16:40 | disposition home or self-care (01) ==
LOC: SSTAY O 10:47
PROVIDERS: ATTEND Student in an Organized Health Care Education/Training Program
DX: I11.0 Hypertensive heart disease with heart failure (principal); I50.9 Heart failure, unspecified; I25.10 Atherosclerotic heart disease of native coronary artery without angina pectoris; I48.91 Unspecified atrial fibrillation; I07.1 Rheumatic tricuspid insufficiency; J44.9 Chronic obstructive pulmonary disease, unspecified; G47.33 Obstructive sleep apnea (adult) (pediatric); Z79.899 Other long term (current) drug therapy; Z79.01 Long term (current) use of anticoagulants; Z88.8 Allergy status to other drugs, medicaments and biological substances
CPT/HCPCS: 93005; 93458; 99152; J1644; J2250; J3010; J3490; J7030; Q0163; Q9967; A4620; A6258; A6402; A6449; C1894